=== PATIENT | male | born 1995 | race Caucasian/White ===

== ENCOUNTER 2020-02-29 14:24 | Outpatient (CLI) | payer SELFPAY ==
--- NOTE | ~2020-02-29 | XR_ITS ---
XR knee LT min 4V 02/29/2020 14:52 Indication: Left knee pain Procedure: 4 views left knee Comparison: No prior studies for comparison. Findings: No fracture, subluxation or dislocation. No significant joint effusion. No radiopaque forei gn bodies. No joint space narrowing. Impression: 1: No significant bone or joint abnormality. Reviewed, dictated and finalized at location A. Impression: 1: No significant bone or joint abnormality.
== END 2020-02-29 14:25 | disposition home or self-care (01) ==
LOC: CHSIMG 14:28
PROVIDERS: PCP Internal Medicine; Visit Provider Internal Medicine
DX: M25.562 Pain in left knee (principal)
CPT/HCPCS: 73564

== ENCOUNTER 2020-11-18 10:07 | Outpatient (CLI) | payer BC, SELFPAY ==
[2020-11-18 23:29] LABS: SARS-CoV-2 RNA PCR Positive
== END 2020-11-18 10:08 | disposition home or self-care (01) ==
PROVIDERS: PCP Internal Medicine; Visit Provider Internal Medicine
DX: U07.1 COVID-19 (principal)
CPT/HCPCS: C9803; U0003

== ENCOUNTER 2024-05-15 00:47 | Day surgery (SDC) | payer BC, SELFPAY ==
[2024-05-07 09:58] VITALS: BMI 31.6
--- NOTE | 2024-05-15 09:37 | SUR.PREOP ---
0830 spoke with Paul about coming in earlier for his procedure. He mentioned that he is not cleaned out from his prep. Spoke with Dr. Boogie about Paul still having dark brown liquid stools and not feeling like he was cleaned out. Dr Boogie wants him to take a bottle of 10 ox magnisium citrate and then come in around 1 today for his procedure. Message relayed to Paul and patient voiced understanding.
[2024-05-15 13:49] VITALS: BP 127/63; PULSE 58; RESP 18; TEMP 36.8; O2SAT 99
[2024-05-15] MEDS: LACTATED RINGERS 1,000 ML 150 ML IV CONT (13:57)
--- NOTE | 2024-05-15 14:28 | P.PNAN_ITS ---
Anes - Initial Pre Proc Eval Procedure: Operation Date: 05/15/24 15:30 Proposed Procedures p Colonoscopy - Chase Aguirre MD Date/Time: 05/15/24 14:28 Surgeon: Chase Aguirre MD Pre Op Diagnosis: Hemorrhage of anus/rectum Patient Data Age: 28 Gender: M Height: 1.93 m Weight: 118.3 kg Last Vital Signs Temp 98.3 F 05/15/24 13:49 Pulse 58 L 05/15/24 13:49 Resp 18 05/15/24 13:49 BP 127/63 05/15/24 13:49 Pulse Ox 99 05/15/24 13:49 O2 Del Method Room Air 05/15/24 13:49 Allergies Allergy/AdvReac Type Severity Reaction Status Date / Time No Known Allergies Allergy Unverified 05/15/24 13:48 Home Medications Medication Instructions Recorded Confirmed Type fluoxetine 20 mg capsule 20 mg PO DAILY 01/31/24 05/07/24 History hydrocortisone 2.5 % topical cream 1 applic RECTAL BID PRN 01/31/24 05/07/24 Rx with perineal applicator hemorrhoids #30 grams omeprazole 20 mg capsule,delayed 20 mg PO DAILY 01/31/24 05/07/24 History release sodium,potassium,mag sulfates 17.5 See Rx Instructions .Route 05/07/24 Rx gram-3.13 gram-1.6 gram oral soln .COMPLEX #354 mL (Suprep Bowel Prep Kit) Patient hx anesthesia problems: none Family hx anesthesia problems: none Results Review: All pre-operative results and documents have been reviewed as part of the pre-operative evaluation. [facility] Past Medical History Medical History (Updated 01/31/24 @ 15:31 by DOMINIK WatsonNAdrian) Bright red blood per rectum Social History Social History Smoking status: Never smoker Alcohol intake: current Drinks per week: 2 Alcohol use details: DRINKS Substance use: current Substance use type: marijuana Other substance usage details: OCC. Living arrangements: with family Spiritual care concerns: No Anes - Eval Final PreProcedure Day of Procedure 05/15/24 14:28 Patient weight: obese Heart: regular rate and rhythm Lungs: clear to auscultation Airway: Mallampati scale class II Neurological: alert and oriented Last oral intake: >/= 8 hours ASA classification: II Emergent: no Anesthetic plan: proceed Anesthesia type and monitoring: general GIVS and standard monitoring Results Review: All pre-operative results and documents have been reviewed as part of the pre- operative evaluation. Informed Consent: The patient's anesthetic plan and its attendant risks and benefits were discussed with the patient/family/POA. Questions were solicited and answers provided to the satisfaction of the patient/family/POA.
--- NOTE | 2024-05-15 14:31 | P.HP_ITS ---
History of Present Illness History of Present Illness Consent: Risks, benefits, and alternatives have been discussed and questions answered. Patient agrees to proceed with procedure. Chief complaint: Hemorrhage of anus/rectum Narrative: Paul Youssef is a 28 year old male here for colonoscopy, had rectal bleeding, no diarrhea. Review of Systems Review of Systems: All systems reviewed & are unremarkable except as noted in HPI and below PMFSH Past Medical History Medical History (Updated 01/31/24 @ 15:31 by Yeny Hyman, LABORATORY DEVELOPMENT TECHNICIAN-Karen) Bright red blood per rectum Social History Social History Smoking status: Never smoker Alcohol intake: current Drinks per week: 2 Alcohol use details: DRINKS Substance use: current Substance use type: marijuana Other substance usage details: OCC. Living arrangements: with family Spiritual care concerns: No Meds Home Medications and Allergies Home Medications Medication Instructions Recorded Confirmed Type fluoxetine 20 mg capsule 20 mg PO DAILY 01/31/24 05/07/24 History hydrocortisone 2.5 % topical cream 1 applic RECTAL BID PRN 01/31/24 05/07/24 Rx with perineal applicator hemorrhoids #30 grams omeprazole 20 mg capsule,delayed 20 mg PO DAILY 01/31/24 05/07/24 History release sodium,potassium,mag sulfates 17.5 See Rx Instructions .Route 05/07/24 Rx gram-3.13 gram-1.6 gram oral soln .COMPLEX #354 mL (Suprep Bowel Prep Kit) Allergies Allergy/AdvReac Type Severity Reaction Status Date / Time No Known Allergies Allergy Unverified 05/15/24 13:48 Vital Signs Vital Signs - 24 hr 05/15/24 13:49 Temperature 98.3 F Pulse Rate 58 L Respiratory Rate 18 Blood Pressure 127/63 Pulse Oximetry 99 Oxygen Delivery Room Air Exam Const: General: comfortable and no acute distress HENMT: Face/Nose/Sinus: Normal nares present Eyes: General: appearance normal, both eyes and all related structures Neck: Neck: no JVD Resp: Auscultation: clear to auscultation bilaterally Cardio: Rate: regular rate Rhythm: regular rhythm GI: Inspection: non-distended GI Palp: Yes Soft to palpation Skin: General skin exam: normal color Neuro: General: gait normal Speech: normal speech Extrem: General: normal to inspection Psych: Mental Status: mental status grossly normal Assessment and Plan Assessment and plan (1) Bright red blood per rectum: Code(s): K62.5 - Hemorrhage of anus and rectum Status: Acute Assessment and Plan: colonoscopy
[2024-05-15 15:11] VITALS: BP 106/62; PULSE 60; RESP 18; O2SAT 100
[2024-05-15 15:21] VITALS: BP 106/62; PULSE 76; RESP 18; O2SAT 98
[2024-05-15 15:31] VITALS: BP 109/62; PULSE 60; RESP 17; O2SAT 99
== END 2024-05-15 15:40 | disposition home or self-care (01) ==
PROVIDERS: PCP Internal Medicine; Referring Provider Nurse Practitioner Family; Visit Provider Internal Medicine Gastroenterology
PROC: 0DJD8ZZ Inspection of Lower Intestinal Tract, Via Natural or Artificial Opening Endoscopic (ICD-10-PCS; CPT 45378; principal; 2024-05-15 15:30)
DX: K62.5 Hemorrhage of anus and rectum (principal); K64.8 Other hemorrhoids
CPT/HCPCS: 45378; J2704; J7120